=== PATIENT | male | born 1985 | race African-American/Black ===

== ENCOUNTER 2018-02-21 16:59 | Inpatient (IN) | END 2018-03-02 18:57 | disposition home health service (06) | DRG 853 ==

== ENCOUNTER 2018-05-17 13:17 | Day surgery (SDC) | END 2018-05-17 19:02 | disposition home or self-care (01) ==

== ENCOUNTER 2018-05-21 22:28 | Emergency (ER) | END 2018-05-22 04:00 | disposition home or self-care (01) ==